=== PATIENT | female | born 1970 | race Caucasian/White ===

== ENCOUNTER 2025-04-08 20:50 | Emergency (ER) | payer MEDICAID, SELFPAY ==
[2025-04-08 20:52] VITALS: BMI 55.0
[2025-04-08 21:24] VITALS: BP 112/89; PULSE 70; RESP 22; TEMP 36.6; O2SAT 99
--- NOTE | 2025-04-08 21:48 | XR_ITS ---
Examination: CT brain head without contrast. 2-D sagittal coronal reconstructions Date and time of exam:2024, 10:03 PM INDICATIONS: Increasing confusion vomiting nausea 3 days CTDI: vol (mGy):43.4 DLP: (mGycm):804 Technique: Multiple CT axial sections of the brain have been obtained, 5 mm slice thickness. Contrast has not been administered. 2-D sagittal, coronal reconstructions have been obtained Low dose protocols were performed. One or more of the following dose reduction techniques were used; automated exposure control, adjustment of the mA and/or KV according to patient size, use of iterative reconstruction technique. Findings: No significant ventricular enlargement. Intra-axial or extra-axial hemorrhage density is not seen. No mass effect or midline shift Basal cisterns are not remarkable. Fourth ventricle is midline. Cranial vault intact. Impression: Negative for acute hemorrhage, mass effect or midline shift
--- NOTE | 2025-04-08 21:50 | PD.EDRME ---
Rapid Medical Screening Exam [facility] Arrival date/time: 04/08/25 20:50 55F with history of DM, hypothyroidism, migraines, psych, and previous drug use presents to ED with caregiver for 1 day (starting around 1800 yesterday) of generalized body pain, N/V, and AMS/confusion. Chief Complaint: Nausea/Vomiting/Diarrhea Vital signs: Vital Signs Temperature 98 F 04/08/25 21:24 Pulse Rate 70 04/08/25 21:24 Respiratory Rate 22 H 04/08/25 21:24 Blood Pressure 112/89 H 04/08/25 21:24 Pulse Oximetry (%) 99 04/08/25 21:24 Oxygen Delivery Method Room Air 04/08/25 21:24
[2025-04-08 22:25] LABS: Lactate (Lactic Acid) 0.6 mMol/L (0.4-2.0)
[2025-04-08 22:26] LABS: Basophils # (Auto) 0.0 Thou/mm3 (0.0-0.2); Basophils % (Auto) 1 % (0-2.5); Eosinophils # (Auto) 0.1 Thou/mm3 (0.0-0.5); Eosinophils % (Auto) 1 % (0-10); Hematocrit 31.1 % (36.0-46.0); Hemoglobin 9.8 g/dL (12.0-16.0); Immature Granulocytes Auto 0.02 Thou/mm3 (0.00-0.00); Lymphocytes # (Auto) 1.4 Thou/mm3 (1.0-4.8); Lymphocytes % (Auto) 23 % (10-50); Mean Corpuscular HGB Conc 31.5 g/dl (31.0-37.0); Mean Corpuscular Hemoglobin 24.9 pg (25.0-35.0); Mean Corpuscular Volume 79 fL (80-100); Monocytes # (Auto) 0.5 Thou/mm3 (0.0-0.8); Monocytes % (Auto) 7 % (0-12); Neutrophils # (Auto) 4.1 Thou/mm3 (1.8-7.7); Neutrophils % (Auto) 67 % (37-80); Nucleated Red Blood Cell # 0.00 Thou/mm3 (0.00-0.00); Nucleated Red Blood Cell % 0 /100 WBC (0); Platelet Count 353 Thou/mm3 (140-440); RDW Standard Deviation 46.4 fL (36.4-46.3); Red Blood Count 3.93 Miln/mm3 (4.00-5.20); White Blood Count 6.1 Thou/mm3 (3.6-11.0)
[2025-04-08 22:46] LABS: Ammonia < 10 uMol/L (11-32)
[2025-04-08] MEDS: ONDANSETRON INJ 2 MG/ML INJ 2 ML 4 MG IM (23:25)
[2025-04-08] MEDS: DIAZEPAM INJ 5 MG/ML VIAL 2 ML IM (23:25)
[2025-04-08 23:34] LABS: Anion Gap 11 (7-16); BUN/Creatinine Ratio 17 Ratio (12-20); Blood Urea Nitrogen 20 mg/dL (9-23); Carbon Dioxide 20.2 mMol/L (20.0-31.0); Chloride 113 mMol/L (98-107); Creatinine (Component) 1.2 mg/dL (0.6-1.3); Estimated Creatinine Clearance 47.1 mL/min (>60); Glucose 158 mg/dL (74-106); Potassium 3.8 mMol/L (3.4-5.1); Sodium 144 mMol/L (136-145); eGFR 53 See Note
[2025-04-08 23:35] LABS: Alanine Aminotransferase 10 U/L (10-49); Albumin, Serum 4.8 gm/dL (3.5-5.0); Albumin/Globulin Ratio 1.9 (1.2-2.2); Alcohol, Blood Medical < 3.0 mg/dL (0-10.0); Alkaline Phosphatase 104 U/L (46-116); Aspartate Amino Transferase 20 U/L (0-34); Bilirubin,Total 0.3 mg/dL (0.3-1.2); Calcium 10.0 mg/dL (8.3-10.6); Calcium (Corrected) 10.0 mg/dL (8.5-10.1); Free T4 (Free Thyroxine) 1.25 ng/dL (0.89-1.76); Globulin 2.5 gm/dL (2.3-3.5); Lipase 31 U/L (12-53); Osmolality,Calculated 292 (275-295); Procalcitonin 0.09 ng/ml (0.0-0.49); Thyroid Stimulating Hormone 8.79 uIU/mL (0.55-4.78); Total Protein 7.3 gm/dL (5.7-8.2); Troponin I < 0.002 ng/mL (0.0-0.045)
--- NOTE | 2025-04-09 00:35 | PD.EDNV ---
Nausea/Vomit./Diarrhea-RME/HPI General Chief complaint: Nausea/Vomiting/Diarrhea Stated complaint: NVD Arrival date/time: 04/08/25 20:50 RME / HPI RME / HPI Narrative: 04/08/25 20:50 55F with history of DM, hypothyroidism, migraines, psych, and previous drug use presents to ED with caregiver for 1 day (starting around 1800 yesterday) of generalized body pain, N/V, and AMS/confusion. DR. DREW MAIN ED EVALUATION: Patient presents with ongoing nausea, vomiting, and diarrhea x approximately 1 day duration. Generalized fatigue and chills. No definitive fever, cough, or reported dysuria. Notes generalized abdominal discomfort. PMH of DM, HTN, and elevated cholesterol. Surgical history of cholecystectomy and hysterectomy. Social history positive for tobacco, prior illicit drug abuse, but no alcoholism. Related Data Home Medications ?Medication ?Instructions ?Recorded ?Confirmed albuterol sulfate 90 mcg/actuation 90 mcg inhalation Q4HR ##0 01/07/16 05/10/19 aerosol inhaler (Ventolin HFA) sumatriptan succinate 100 mg 100 mg PO QDAY PRN PAIN #0 tabs 01/07/16 05/10/19 tablet (Imitrex) gabapentin 600 mg tablet 600 mg PO TID #0 tabs 08/12/16 05/10/19 metformin 1,000 mg tablet 1,000 mg PO BID #0 tabs 08/12/16 05/10/19 (Glucophage) amitriptyline 150 mg tablet 150 mg PO QHSPRN 07/10/18 05/10/19 levothyroxine 50 mcg tablet 50 mcg PO QDAY 07/10/18 05/10/19 sitagliptin phosphate 25 mg tablet 25 mg PO QDAY 07/10/18 05/10/19 (Januvia) insulin glargine 100 unit/mL (3 40 unit subcut QDAY 09/10/18 05/10/19 mL) subcutaneous pen (Basaglar KwikPen U-100 Insulin) liraglutide 0.6 mg/0.1 mL (18 mg/3 1.8 mg subcut QDAY 09/10/18 05/10/19 mL) subcutaneous pen injector (Victoza 2-Yanick) [id number]-rayndamtihc 2 tab PO Q6H PRN Allergy Symptoms 09/10/18 05/10/19 5 mg-325 mg-200 mg tablet (Tylenol Sinus Severe) Previous Rx's ?Medication ?Instructions ?Recorded ibuprofen 800 mg tablet 800 mg PO QID PRN pain #30 tabs 05/10/19 cefdinir 300 mg capsule 300 mg PO BID 5 days #10 caps 04/09/25 promethazine 12.5 mg tablet 12.5 mg PO TID PRN nausea and 04/09/25 vomiting #10 tabs Allergies Allergy/AdvReac Type Severity Reaction Status Date / Time morphine Allergy Severe ITCHING, Verified 04/08/25 20:56 WELOSIRIS Review of Systems Review of Systems Systems Reviewed: All systems reviewed, normal except as documented Past Medical History Past Medical History NEUROLOGIC: Positive Migraine RESPIRATORY: Positive Asthma GASTROINTESTINAL: Positive Gastrointestinal Disorders, Diverticulosis and Gastroesophageal Reflux Disease REPRODUCTIVE: Positive Previous Pregnancies (3) MUSCULOSKELETAL: Positive Musculoskeletal Disorders and Arthritis ENDOCRINE: Positive Endocrine Disorders, Diabetes Mellitus Type 2 and Hypothyroidism PSYCHO/SOCIAL: Positive Depression OTHER HISTORY: Positive Blood Transfusions and Chicken Pox Family History FAMILY HISTORY: Positive Family Cardiac Disorders (FATHER-HEART) Surgical History SURGICAL: Positive Hysterectomy and Section (x3) Social History SMOKING STATUS: Current every day smoker ED Exam Narrative Physical exam: GEN. APPEARANCE: The patient is alert awake oriented X-3, chronically ill-appearing and c/o generalized abdominal pain, lying down comfortably, does not look ill/toxic. Patient has good eye contact. Patient is cooperative. VITALS: All vitals were reviewed and the pulse ox is 100% on room air which is normal according to my interpretation. HEENT: Normocephalic, atraumatic. Pupils are equal and reactive. Oral mucosa is moist. Patent Nares NECK: Supple, nontender, no thyromegaly, no meningismus, no JVD, no step offs CHEST: Symmetrical, atraumatic, and with equal expansion , Nontender on palpation no deformity and no crepitus. CARDIOVASCULAR: Heart regular rhythm no murmur or gallop rub or extra beats. LUNGS: Clear to auscultation bilaterally with symmetrical chest rise. No laboring tachypnea or wheezing. No intercostal subcostal retraction. No rales and no rhonchi. ABDOMEN: Soft, flat, nontender to palpation, no guarding or rebound tenderness. There are no abnormal masses palpated. Active and normal bowel sounds. EXTREMITIES: Nontender. No edema. No cyanosis. Patient is able to move all 4 extremities well, with full ROM and good CSM. SKIN: Warm and dry, no jaundice or rashes noted. MUSCULOSKELETAL: No lubar or midline bony tenderness. There is no CVA tenderness. No paraspinal muscle spasm or tenderness. NEURO: Patient is RIVERA x 4, Cranial nerves II through XII grossly intact. There is no focal neurologic deficits noted. GCS is 15, PNS and [employer] appear grossly intact. PSYCHIATRIC: Patient is in normal mood and affect, cooperative, no SI or HI or hallucinations. Course Quality Measures none Orders Category Date Time Status CT head/brain wo con Stat Exams 04/08/25 21:48 Completed Alcohol, Blood Medical Stat Lab 04/08/25 22:19 Completed Ammonia Stat Lab 04/08/25 22:19 Completed CBC Stat Lab 04/08/25 22:19 Completed CMP [Comprehensive Metabolic Panel] Stat Lab 04/08/25 22:19 Completed Free T4 (Free Thyroxine) Stat Lab 04/08/25 22:19 Completed Lactate (Lactic Acid) Stat Lab 04/08/25 22:19 Completed Lipase Stat Lab 04/08/25 22:19 Completed Procalcitonin Stat Lab 04/08/25 22:19 Completed Thyroid Stimulating Hormone Stat Lab 04/08/25 22:19 Completed Troponin I Stat Lab 04/08/25 22:19 Completed Diazepam Inj [Valium Inj] Med 04/08/25 21:48 Discontinued 5 mg IM X1 ONE Ondansetron Inj [Zofran Inj] Med 04/08/25 21:48 Discontinued 4 mg IM X1 ONE Sodium Chloride 0.9% 1000 ml [Ns] 1,000 ml Med 04/09/25 00:47 Discontinued IV 999 mls/hr cefTRIAXone/D5w 1gm IV premix [Rocephin/D5w 1gm IV Med 04/09/25 03:21 Discontinued premix] 1 gm in 50 ml IV X1 Vital Signs Vital signs: Vital Signs Temperature 98 F 04/08/25 21:24 Pulse Rate 70 04/08/25 21:24 Respiratory Rate 22 H 04/08/25 21:24 Blood Pressure 112/89 H 04/08/25 21:24 Pulse Oximetry (%) 99 04/08/25 21:24 Oxygen Delivery Method Room Air 04/08/25 21:24 Nausea/Vomiting/Diarrhea MDM Narrative MDM Narrative:: Scribe Attestation: I, Caroline Bermudez, am scribing for and in the presence of Dr. Drew. Provider Notation: Although this document has been carefully reviewed, there may still be some phonetic and other typographical errors. These errors are purely grammatical due to imperfections in the software program and should not be construed in any way to? compromise the substance of the patient's medical care during this visit. Patient presents with ongoing nausea, vomiting, and diarrhea x approximately 1 day duration. Generalized fatigue and chills. No definitive fever, cough, or reported dysuria. Please see PE findings. Laboratory markers demonstrate normal WBC. Patient is notably anemic with hemoglobin of 9.8 and normal platelet count, no left shift or associated bandemia. Serum chemistries includng renal function, ammonia, troponin I, and procalcitonin unremarkable. TSH mildly elevated at 8. CT of the brain is negative. No signs of sepsis. Patient hydrated with saline and treated with imperical ABX for evidence of UTI. Patient interacting appropriately and discharged home. Final diagnosis includes UTI. Patient data External records reviewed:: [facility] previous records (No recent ED records available for review.) Clinical information provided by:: patient Social determinants that could affect healthcare access:: none Patient has the following chronic illnesses:: Migraine, Asthma, Diverticulosis, Gastroesophageal Reflux Disease, Arthritis, Diabetes Mellitus Type 2, Hypothyroidism, Depression How is presenting disease/condition affected by chronic disease/condition?: exacerbated by Evaluation data The following diagnostics were reviewed and interpreted by me:: lab results and radiology exam(s) Lab and/or radiology exams considered but not ordered:: None Interpretation Summary: RADIOLOGY Head/Brain CT: Findings: No significant ventricular enlargement. Intra-axial or extra-axial hemorrhage density is not seen. No mass effect or midline shift Basal cisterns are not remarkable. Fourth ventricle is midline. Cranial vault intact. Impression: Negative for acute hemorrhage, mass effect or midline shift Medications / Prescriptions Medications / Prescriptions considered but not ordered:: None Medication administrations:: Medication Administration History Discontinued Medications Diazepam (Diazepam Inj 5 Mg/Ml Vial 2 Ml) 5 mg IM X1 ONE Stop: 04/08/25 21:49 Last Admin: 04/08/25 23:25 Dose: 5 mg Documented By: ARTURO Sodium Chloride (Ns) 1,000 mls @ 999 mls/hr IV .Q1H1M DAVID Stop: 05/09/25 00:46 Last Admin: 04/09/25 01:57 Dose: Not Given Documented By: EDGAR Non-Admin Reason: Cancelled by Provider Admin: 04/09/25 01:04 Dose: 999 mls/hr Documented By: EDGAR Ceftriaxone Sodium/Dextrose (Rocephin/D5w 1gm Iv Premix) 1 gm in 50 mls @ 100 mls/hr IV X1 ONE Stop: 04/09/25 03:50 Last Admin: 04/09/25 03:33 Dose: 100 mls/hr Documented By: EDGAR Ondansetron HCl (Ondansetron Inj 2 Mg/Ml Inj 2 Ml) 4 mg IM X1 ONE; Protocol Stop: 04/08/25 21:49 Last Admin: 04/08/25 23:25 Dose: 4 mg Documented By: ARTURO See above if any. Consultations Consultation(s) initiated? (list below): No Diagnosis Nausea Differential Diagnosis: traveler's diarrhea, food poisoning, gastroenteritis, clostridium difficile infection, drug-induced nausea and vomiting and dehydration Most likely diagnosis given after review of the tests above:: UTI Admission Indicated Admission indicated?: not indicated Explain why admission is indicated or not indicated:: Patient does not meet admission criteria. Admission Request Was there a request for admission?: No Disposition Plan Disposition Plan: Discharge Discharge Attestation Discharge Attestation: The patient and all family members were given an opportunity to ask questions and understood the discharge instructions. Discharge instructions specifically effects, indications for sooner follow up or return to the emergency department, and the expected course of current diagnosis. Patient condition: Stable Discharge Plan Plan Patient Disposition: HOME (Self Care) Discharge Disposition comment: Stable Prescriptions/Referrals Prescriptions/Med Rec: New cefdinir 300 mg capsule 300 mg PO BID 5 Days Qty: 10 0RF promethazine 12.5 mg tablet 12.5 mg PO TID PRN (Reason: nausea and vomiting) Qty: 10 0RF No Action sumatriptan succinate [Imitrex] 100 MG tablet 100 mg PO QDAY PRN (Reason: PAIN) Qty: 0 albuterol sulfate [Ventolin HFA] 18 GM HFA aerosol inhaler 90 mcg Inhalation Q4HR Qty: 0 metformin [Glucophage] 1,000 MG tablet 1,000 mg PO BID Qty: 0 gabapentin 600 MG tablet 600 mg PO TID Qty: 0 amitriptyline 150 mg Tablet 150 mg PO QHSPRN levothyroxine 50 mcg Tablet 50 mcg PO QDAY Januvia 25 mg Tablet 25 mg PO QDAY Tylenol Sinus Severe 5-325-200 mg Tablet 2 tab PO Q6H PRN (Reason: Allergy Symptoms) Avtar IslasikPen U-100 Insulin 100 unit/mL (3 mL) Insulin Pen 40 unit SUBCUT QDAY Victoza 2-Yanick 0.6 mg/0.1 mL (18 mg/3 mL) Pen Injector 1.8 mg SUBCUT QDAY ibuprofen 800 mg tablet 800 mg PO QID PRN (Reason: pain) Qty: 30 0RF Referrals: No Primary/Family,Physician [Primary Care Provider] - In 1 week Problem List Clinical Impression: UTI (urinary tract infection) Patient/Caregiver Discharge Instructions Discharge Activity: activity as tolerated Diet Instructions: Force fluids. Education Materials: ED CYSTITIS Female Adult Additional Instructions: Force fluids. Medication as directed. Follow-up with primary care doctor for repeat urinalysis in 1 week. Return if worsening Print Language: Vietnamese Stand Alone Forms: Ludmila Award Info., Patient Portal Info Letter
[2025-04-09 00:45] VITALS: BP 149/85; PULSE 61; RESP 12; O2SAT 100
[2025-04-09] MEDS: SODIUM CHLORIDE 0.9% 1000 ML 1,000 ML 999 ML IV (01:04)
[2025-04-09] MEDS: cefTRIAXone/D5w 1gm IV premix 1 GM/50 ML BAG IV (03:33)
[2025-04-09 04:37] VITALS: BP 148/75; PULSE 87; RESP 19; O2SAT 96
== END 2025-04-09 04:39 | disposition home or self-care (01) ==
PROVIDERS: Physician Assistant; Emergency Provider Emergency Medicine
DX: N39.0 Urinary tract infection, site not specified (principal); R41.0 Disorientation, unspecified; R11.2 Nausea with vomiting, unspecified
CPT/HCPCS: 36415; 70450; 80053; 80307; 80320; 81001; 82140; 83605; 83690; 84145; 84439; 84443; 84484; 85025; 96372; 99283; J0696; J2405; J3360; J7030; G0480